=== PATIENT | male | born 1970 | race Two or more races ===

== ENCOUNTER 2024-04-27 14:22 | Emergency (ER) | payer MEDICAID, SELFPAY ==
[2024-04-27 14:24] VITALS: BMI 26.6
[2024-04-27 14:53] VITALS: BP 139/83; PULSE 66; RESP 20; TEMP 36.7; O2SAT 99
--- NOTE | 2024-04-27 15:22 | XR_ITS ---
Examination: CT maxillofacial, without intravenous contrast. 2-D sagittal reconstructions. 3-D reconstructions. Date and time of exam:April 27, 2024 at 1531 hrs. Indications: Left eye injury secondary to a tree branch today, hand pain CTDI: vol (mGy):15.9 DLP: (mGycm):152 Technique: Multiple axial images of maxillofacial region, 3.0 mm slice thickness. 2-D sagittal and coronal reconstructions. 3-D reconstructions. Low dose protocols were performed. One or more of the following dose reduction techniques were used; automated exposure control, adjustment of the mA and/or KV according to patient size, use of iterative reconstruction technique. Findings: The optic globes appear intact The optic lenses are not displaced The optic nerves exhibit symmetry No retro-orbital mass lesion is depicted No orbital or opaque foreign body is noted There is no localized enlargement of the ophthalmic musculature Bony gomez of the orbits are intact Visualized cerebral structures are unremarkable Impression: The optic globes exhibit symmetry and appear intact No retro-orbital mass lesion contusion or hematoma is noted No opaque foreign bodies project within the orbits.
--- NOTE | 2024-04-27 15:23 | EDNOTE_ITS ---
<Statement entered by Edyta Woods MD - 04/27/24 17:57> As co-signing physician, I was present and available for consult prn. I concur with the plan and care as documented by the midlevel provider. ED Eye Problem RME/HPI General Chief complaint: Eye Problems Stated complaint: LEFT EYE INJURY, BLURRY VISION Time Seen by Provider: 04/27/24 15:17 Arrival date/time: 04/27/24 14:22 RME / HPI RME / HPI Narrative: 53-year-old male patient with no significant medical history, came in for evaluation regarding left eye trauma. Patient was working, and hit the left eye with a branch resulting into pain, and blurry vision severity moderate. Denies any headache denies any bleeding denies any other complaints no medication was taken prior to arrival. Incident happened about 2 hours prior to ER visit. Patient's tetanus vaccination is up-to-date Related Data Previous Rx's ?Medication ?Instructions ?Recorded neomycin 3.5 mg-polymyxin 10,000 1 drp ophthalmic (eye) Q6H 7 days 04/27/24 unit-hydrocort 10 mg/mL eye #7.5 mL drop,susp Allergies Allergy/AdvReac Type Severity Reaction Status Date / Time No Known Allergies Allergy Verified 04/27/24 14:23 Review of Systems Review of Systems Narrative Review of Systems: Review of system reviewed and within normal limits except mentioned in HPI ED Exam Narrative Physical exam: VITAL SIGNS: Reviewed. GENERAL APPEARANCE: Alert and interactive, follows commands, no acute distress, HEAD AND FACE: Non-traumatic. ENT: PERRL, injected conjunctiva noted on the left no drainage noted, no deformity noted on the eyeball, eyelid no trauma, Mucous membrane moist. NECK: Supple, nontender, no nuchal rigidity. CHEST: No tenderness, no crepitus, no paradoxical movement, no retractions. LUNGS: Clear, well ventilated, symmetric, no rales, no wheezing, no ronchi, no stridor, good breath sounds bilaterally. HEART: Regular rate, regular rhythm, no murmur, no gallops. ABDOMEN: Soft, positive bowel sounds, nondistended, no guarding, nontender, no rebound, no masses, RECTAL: Deferred. GENITAL: Deferred. NEUROLOGICAL: Gross motor function intact sensory function intact, Appropriate for age. MUSCULOSKELETAL: low back nontender, full range of motion. EXTREMITIES: Nontender, full range of motion. SKIN: Color pink, dry, no rash, no lacerations, no abrasions, no contusions. LYMPHATICS: Deferred. Course Quality Measures none Orders Category Date Time Status CT orbit BI wo con Stat Exams 04/27/24 15:22 Completed Fluorescein Sodium [Iusin-P-Pflhf] Med 04/27/24 15:19 Discontinued 1 mg LEFT EYE X1 ONE Ibuprofen Tab [Motrin Tab] Med 04/27/24 16:13 Discontinued 800 mg PO X1 ONE OG/POLY/HC (Cortisporin) OP [Cortisporin Op Maru] Med 04/27/24 16:12 Discontinued See Dose Instructions LEFT EYE X1 ONE TETRACAINE Op Angélica 0.5% [Pontocaine Op Angélica 0.5%] Med 04/27/24 15:20 Discontinued 1 drop LEFT EYE X1 ONE Vital Signs Vital signs: Vital Signs Temperature 98.0 F 04/27/24 14:53 Pulse Rate 66 04/27/24 14:53 Respiratory Rate 20 04/27/24 14:53 Blood Pressure 139/83 H 04/27/24 14:53 Pulse Oximetry (%) 99 04/27/24 14:53 Oxygen Delivery Method Room Air 04/27/24 14:53 Eye MDM Narrative MDM Narrative:: 53-year-old male patient with no significant medical history, came in for evaluation regarding left eye trauma. Patient was working, and hit the left eye with a branch resulting into pain, and blurry vision severity moderate. Denies any headache denies any bleeding denies any other complaints no medication was taken prior to arrival. Incident happened about 2 hours prior to ER visit. Patient's tetanus vaccination is up-to-date Eye was examined under the Fraire lamp. Tetracaine ophthalmic drop was administered to the eye and fluorescein strip was applied and was then illustrated under the Fraire lamp. Abrasion noted, at 9:00 o'clock, no foreign body noted, Eye was then irrigated with copious amounts of eye stream. Procedure was well tolerated by patient. Verbalized understanding. Patient was also given Cortisporin ophthalmic drops CT scan of the orbit came back unremarkable. Results discussed with the patient. Patient was advised to follow-up with PCP and for referral to egg sorter as needed. Patient appears nontoxic and hemodynamically stable. Patient discharged home and instructed to follow-up with primary care provider in 24 to 48 hours. Instructed to return to the emergency department immediately if worsening of symptoms Patient data External records reviewed:: None Clinical information provided by:: patient Social determinants that could affect healthcare access:: none Patient has the following chronic illnesses:: None How is presenting disease/condition affected by chronic disease/condition?: no chronic disease Evaluation data The following diagnostics were reviewed and interpreted by me:: radiology exam(s) Lab and/or radiology exams considered but not ordered:: None Interpretation Summary: CT scan of the orbit came back unremarkable. Medications / Prescriptions Medications or Prescriptions considered but not ordered:: None Medication administrations:: Medication Administration History Discontinued Medications Fluorescein Sodium (Fluorescein Sod 1 Mg Strp) 1 mg LEFT EYE X1 ONE Stop: 04/27/24 15:20 Last Admin: 04/27/24 15:26 Dose: 1 mg Documented By: ANDREA Ibuprofen (Ibuprofen Tab 400 Mg Tablet) 800 mg PO X1 ONE Stop: 04/27/24 16:14 Last Admin: 04/27/24 16:37 Dose: 800 mg Documented By: ANDREA Neomycin/Polymyxin/Hydrocortisone (Og/Poly/Hc (Cortisporin) Op Susp 7.5 Ml Btl) 0 drop LEFT EYE X1 ONE Stop: 04/27/24 16:13 Last Admin: 04/27/24 16:37 Dose: 2 drop Documented By: ANDREA Tetracaine HCl (Tetracaine Pf Op Angélica 0.5% 4 Ml Drpette) 1 drop LEFT EYE X1 ONE Stop: 04/27/24 15:21 Last Admin: 04/27/24 15:26 Dose: 1 drop Documented By: ANDREA Motrin, tetracaine eyedrops, and Cortisporin eyedrops Consultations Consultation(s) initiated? (list below): No Diagnosis Eye Problem Differential Diagnosis: corneal abrasion, ruptured globe and other (eye pain) Most likely diagnosis given after review of the tests above:: Corneal abrasion Admission Indicated Admission indicated?: not indicated Explain why admission is indicated or not indicated:: Stable Admission Request Was there a request for admission?: No Disposition Plan Disposition Plan: Discharge Discharge Attestation Discharge Attestation: The patient was given an opportunity to ask questions and understood the discharge instructions. Discharge instructions specifically effects, indications for sooner follow up or return to the emergency department, and the expected course of current diagnosis. Patient condition: Stable Discharge Plan Plan Patient Disposition: HOME (Self Care) Disposition Comment: stable Prescriptions/Referrals Prescriptions/Med Rec: New [id number] 3.5-10,000-10 mg-unit-mg/mL drops,suspension 1 drp ophthalmic (eye) Q6H 7 Days Qty: 7.5 0RF Referrals: Era Dunbar PA-C [Primary Care Provider] - In 1 week Problem List Clinical Impression: Corneal abrasion Patient/Caregiver Discharge Instructions Discharge Activity: activity as tolerated Education Materials: ED Corneal Abrasion Additional Instructions: Thank you for the opportunity for serving you today. You are stable for discharged . You are advised to: Follow-up with your PCP in 1 to 2 days and as per referral to ophthalmology as needed Return to ED for worsening of symptoms Increase oral fluids Take medication as prescribed Print Language: Turkish Stand Alone Forms: Brianna Award Info., Patient Portal Info Letter LOYD/BERONICA Supervising Physician LOYD/BERONICA Supervising Physician: MD Nilsa
[2024-04-27] MEDS: FLUORESCEIN SOD 1 MG STRP LEFT EYE (15:26)
[2024-04-27] MEDS: TETRACAINE PF OP SOL 0.5% 4 ML DRPETTE 1 DROP LEFT EYE (15:26)
[2024-04-27 16:31] VITALS: BP 136/78; PULSE 63; RESP 16; TEMP 36.7; O2SAT 99
[2024-04-27] MEDS: NEO/POLY/HC (Cortisporin) OP SUSP 7.5 ML BTL LEFT EYE (16:37)
[2024-04-27] MEDS: IBUPROFEN TAB 400 MG TABLET 800 MG PO (16:37)
[2024-04-27 17:14] VITALS: BP 130/78; PULSE 63; RESP 16; TEMP 36.7; O2SAT 99
== END 2024-04-27 17:15 | disposition home or self-care (01) ==
PROVIDERS: Emergency Provider Emergency Medicine; PCP Physician Assistant Medical
DX: S05.02XA Injury of conjunctiva and corneal abrasion without foreign body, left eye, initial encounter (principal); W22.8XXA Striking against or struck by other objects, initial encounter
CPT/HCPCS: 70480; 99284; A9270